=== PATIENT | female | born 1945 | race Caucasian/White ===

== ENCOUNTER 2017-06-03 12:45 | Outpatient (CLI) | payer MEDICARE ==
[2017-06-03 13:30] LABS: Bilirubin Negative (Negative); Blood, Urine Moderate (Negative); Clarity Clear (Clear); Glucose, Urine (Dipstick) Negative (Negative); Leukocyte Large (Negative); Nitrite Negative (Negative); Protein, Urine (Dipstick) Negative (Neg-Trace); Specific Gravity, Urine 1.015 (1.005-1.030); Urobilinogen 0.2 mg/dL (0.2-1.0); pH, Urine 6.5 (5.0-9.0)
[2017-06-03 13:41] LABS: Bacteria/HPF 1+ HPF (None Seen)
[2017-06-03 13:46] LABS: ALT (SGPT) 12 U/L (8-55); AST (SGOT) 14 U/L (5-34); Albumin 4.3 g/dL (3.4-4.8); Alkaline Phosphatase 68 U/L (40-150); Anion Gap 11 mmol/L (10-20); BUN (Urea Nitrogen) 30 mg/dL (9.8-20.1); Bilirubin, Total 0.5 mg/dL (0.2-1.2); Calc. Creatinine Clearance 0 mL/min (70-130); Calcium 9.8 mg/dL (7.8-10.44); Carbon Dioxide 32 mmol/L (23-31); Cardiac Risk 4.5 (Less than 4.5); Chloride 102 mmol/L (98-107); Cholesterol 194 mg/dl (< 200 Desired); Estimated GFR-MDRD 39; Globulin 2.6 g/dL (2.4-3.5); Glucose 94 mg/dL (83-110); HDL Cholesterol 43 mg/dL (>60 Neg Risk); LDL Cholesterol, Calculated 122 mg/dL; Potassium 4.2 mmol/L (3.5-5.1); Protein, Total 6.9 g/dL (6.0-8.3); Sodium 141 mmol/L (136-145); Triglycerides 144 mg/dL (Less than 150)
[2017-06-03 13:50] LABS: Hemoglobin A1c 5.6 % (4.0-6.0)
[2017-06-03 14:08] LABS: Free T4 (Free Thyroxine) 1.27 ng/dL (0.70-1.48); Thyroid Stimulating Hormone 0.7923 uIU/mL (0.35-4.94); Vitamin D, 25 Hydroxy 54.5 ng/ml (> 30.0)
[2017-06-03 22:11] LABS: Eosinophils 1 % (0-10); Hemoglobin 12.9 g/dL (12.0-16.0); Lymphocytes 49 % (21-51); MDiff Complete? YES; Mean Corpuscular Volume 87.4 fl (81.0-99.0); Mean Platelet Volume 9.9 fL (7.4-10.4); Monocytes 5 % (0-10); Neutrophil 44 % (42-75); Platelet Count 143 thou/uL (130-400); RBC Distribution Width 12.6 % (11.5-14.5); Reactive Lymphocytes 1 % (0-10); Red Blood Cell (RBC) Count 4.61 mill/uL (4.20-5.40); White Blood Cell (WBC) Count 7.8 thou/uL (4.8-10.8)
[2017-06-06 17:32] LABS: Creatinine, Urine 62.55 mg/dL (47-110); Microalbumin Urine Less than 1.0 mg/dL (0.5-50.0)
== END 2017-06-03 12:46 | disposition home or self-care (01) ==
LOC: NAV LAB 12:45
PROVIDERS: ATTEND Family Medicine
DX: E11.9 Type 2 diabetes mellitus without complications (principal); E03.8 Other specified hypothyroidism; E55.9 Vitamin D deficiency, unspecified; I10 Essential (primary) hypertension
CPT/HCPCS: 36415; 80053; 80061; 81001; 82043; 82306; 83036; 84439; 84443; 84481; 85025

== ENCOUNTER 2017-06-09 21:44 | Emergency (ER) | payer MEDICARE ==
[2017-06-09 22:12] LABS: #Basophils 0.1 thou/uL (0.0-0.2); #Lymphocytes 4.3 thou/uL (1.20-3.40); #Monocytes 0.5 thou/uL (0.11-0.59); #Neutrophils 9.1 thou/uL (1.40-6.50); %Basophils 0.9 % (0.0-1.0); %Eosinophils 0.1 % (0.0-10.0); %Lymphocytes 30.4 % (21.0-51.0); %Monocytes 3.3 % (0.0-10.0); %Neutrophils 65.3 % (42.0-75.0); Hemoglobin 13.6 g/dL (12.0-16.0); Mean Corpuscular HGB CONC 32.6 g/dL (32.0-36.0); Mean Corpuscular Hemoglobin 28.3 pg (27.0-31.0); Mean Corpuscular Volume 86.7 fl (81.0-99.0); Mean Platelet Volume 9.6 fL (7.4-10.4); Platelet Count 152 thou/uL (130-400); RBC Distribution Width 12.7 % (11.5-14.5); Red Blood Cell (RBC) Count 4.83 mill/uL (4.20-5.40)
[2017-06-09] MEDS ORDERED: Sodium Chloride 0.9% 1,000 ML ONE (22:14)
[2017-06-09] MEDS ORDERED: Ondansetron HCl/PF 4 MG/2 ML Vial ONE (22:14)
[2017-06-09 22:38] LABS: ALT (SGPT) 13 U/L (8-55); AST (SGOT) 16 U/L (5-34); Albumin 4.3 g/dL (3.4-4.8); Alkaline Phosphatase 67 U/L (40-150); Anion Gap 15 mmol/L (10-20); BUN (Urea Nitrogen) 32 mg/dL (9.8-20.1); Bilirubin, Total 0.5 mg/dL (0.2-1.2); Calc. Creatinine Clearance 0 mL/min (70-130); Calcium 9.8 mg/dL (7.8-10.44); Carbon Dioxide 30 mmol/L (23-31); Chloride 100 mmol/L (98-107); Estimated GFR-MDRD 35; Globulin 3.1 g/dL (2.4-3.5); Glucose 148 mg/dL (83-110); Lipase 29 U/L (8-78); Potassium 3.7 mmol/L (3.5-5.1); Protein, Total 7.4 g/dL (6.0-8.3); Sodium 141 mmol/L (136-145)
[2017-06-09 22:39] LABS: CKMB 3.9 ng/mL (0-6.6); Troponin I Less than 0.010 ng/mL (< 0.028)
[2017-06-09 23:22] LABS: Bilirubin Negative (Negative); Blood, Urine Trace (Negative); Clarity Hazy (Clear); Glucose, Urine (Dipstick) Negative (Negative); Leukocyte Large (Negative); Nitrite Negative (Negative); Protein, Urine (Dipstick) Negative (Neg-Trace); Specific Gravity, Urine 1.015 (1.005-1.030); Urobilinogen 0.2 mg/dL (0.2-1.0)
[2017-06-09 23:27] LABS: Bacteria/HPF 1+ HPF (None Seen); RBC/HPF 0-3 HPF (0-3)
--- NOTE | 2017-06-09 23:38 | RAD ---
PORTABLE CHEST: History: Syncopal episode. FINDINGS: Lungs are clear. Heart and mediastinum appear normal. IMPRESSION: No acute abnormality. POS: [facility]
--- NOTE | 2017-06-09 23:42 | CT ---
CT HEAD WITHOUT CONTRAST: Technique: Multiple axial tomograms were obtained through the head without IV enhancement. History: Passed out and injured head. FINDINGS: Ventricles have normal size and position. There is a focal area of high attenuation seen in the periventricular white matter posteriorly on th e right adjacent to the posterior aspect of the right lateral ventricle. This measures approximately 8-10 mm. The density would be concerning for a small focal hematoma. There is no other evidence of hemorrhage. No evidence of acute infarct. No mass effect. Sinuses and mastoids are well aerated. No evidence of skull fracture identified. IMPRESSION: 1. Small focal hyperdensity in the periventricular white matter posteriorly on the right measuring 8 -10 mm, most consistent with a small focal hematoma given the history of head injury. Recommend clos e follow up. Findings were relayed to the ER physician by phone at the time of the exam. Code CR POS: [facility]
== END 2017-06-09 23:20 | disposition short-term general hospital (02) ==
LOC: NAV ERS 21:44
DX: S06.2X9A Diffuse traumatic brain injury with loss of consciousness of unspecified duration, initial encounter (principal); S00.83XA Contusion of other part of head, initial encounter; E11.9 Type 2 diabetes mellitus without complications; I10 Essential (primary) hypertension; E03.9 Hypothyroidism, unspecified; R19.7 Diarrhea, unspecified; R11.2 Nausea with vomiting, unspecified; Z79.82 Long term (current) use of aspirin; Z79.899 Other long term (current) drug therapy; W19.XXXA Unspecified fall, initial encounter
CPT/HCPCS: 36416; 70450; 71010; 80053; 81003; 81015; 82553; 83690; 83735; 84443; 84484; 85025; 93005; 96361; 96374; 36415-59; J2405; J7050

== ENCOUNTER 2017-07-05 09:50 | Outpatient (CLI) | payer MEDICARE ==
--- NOTE | 2017-07-05 11:01 | CT ---
NONCONTRAST HEAD CT: Comparison: 06-10-17 History: Follow up exam. Previous intracranial hematoma. Technique: Noncontrast head CT is performed from skull base to skull vertex. FINDINGS: Re-demonstration of an essentially stable hyperdensity along the right periventricular region extend ing into the right zaragoza radiata and right centrum semiovale. This hypodensity measures 0.6 cm. No significant change in size. No associated edema. No new areas of parenchymal hyperdensity are apprec iated. There is no extraaxial hematoma. Age appropriate brain volume. Cortical kinney white matter differentiation preserved. Stable configura tion of ventricular system. Calvarium is intact. Adequate aeration of sinuses and mastoid air cells. IMPRESSION: Essentially stable hyperdensity involving the right white matter. Given the absence of interval rodney ge in size, differential considerations include a non-resolved parenchymal hematoma versus cavernoma . Better interrogation with brain MRI is recommended barring any contraindication. POS: [facility]
== END 2017-07-05 09:51 | disposition home or self-care (01) ==
LOC: NAV CT 09:50
PROVIDERS: ATTEND Neurological Surgery
DX: S06.341A Traumatic hemorrhage of right cerebrum with loss of consciousness of 30 minutes or less, initial encounter (principal)
CPT/HCPCS: 70450